=== PATIENT | male | born 1950 | race American Indian/Alaskan Native ===

== ENCOUNTER 2018-02-13 11:37 | Emergency (ER) | payer MEDICARE ==
[2018-02-13 11:51] VITALS: BMI 25.4
--- NOTE | 2018-02-13 12:00 | ED PDOC ---
Arrival/HPI - General Time Seen by Provider: 02/13/18 11:42 Historian: Patient - History of Present Illness Narrative History of Present Illness (Text): 02/13/18 11:56 A 67 year old male, with no significant past medical history, is brought into the emergency department by ambulance to the emergency department complaining of right knee and ankle pain s/p a fall 2 days ago. The patient states that he was walking down the stairs when he suddenly tripped over his 's shoes. He notes that he is unable to bear weight on his right lower extremity. The patient denies fevers, chills, loss of consciousness, headache, dizziness, chest pain, shortness of breath, dyspnea on exertion, cough, abdominal pain, nausea, vomiting, diarrhea, back pain, neck pain, urinary/bowel changes, or any other complaint. PMD: Dr. Murphy Time/Duration: Other (2 Days) Symptom Onset: Sudden Symptom Course: Unchanged Activities at Onset: Rest, Light Context: Home Associated Symptoms (Text): 02/13/18 12:16 Mechanical fall down 2 steps 2 days ago injuring his right knee and ankle. No hip trauma. No neck or back pain. No head trauma. No upper extremity trauma. He is unable to ambulate. Past Medical History - Provider Review Nursing Documentation Reviewed: Yes - Cardiac Hx Hypertension: Yes - Gastrointestinal Other/Comment: liver tumor / CA - Psychiatric Hx Substance Use: No Family/Social History - Physician Review Nursing Documentation Reviewed: Yes Family/Social History: No Known Family HX Smoking Status: Never Smoked Hx Alcohol Use: No Hx Substance Use: No Allergies/Home Meds Allergies/Adverse Reactions: Allergies peanut butter Adverse Reaction (Uncoded 02/13/18 12:04) FATIGUE Home Medications: Home Meds Medication Instructions Recorded Confirmed Donepezil [Aricept] 1 tab PO DAILY 12/08/16 12/08/16 Ergocalciferol [Drisdol] 50,000 iu PO 12/08/16 Nebivolol [Bystolic] 10 mg PO BID 12/08/16 12/08/16 Regorafenib [Stivarga] 40 mg PO DAILY 12/08/16 12/08/16 amLODIPine [Norvasc] 10 mg PO DAILY 12/08/16 12/08/16 Review of Systems - Physician Review All systems were reviewed & negative as marked: Yes - Review of Systems Constitutional: absent: Fevers, Night Sweats Respiratory: absent: SOB, Cough Cardiovascular: absent: Chest Pain, NEVES Gastrointestinal: absent: Abdominal Pain, Diarrhea, Nausea, Vomiting Genitourinary Male: absent: Urinary Output Changes Musculoskeletal: Other (Right knee and ankle pain). absent: Back Pain, Neck Pain Neurological: absent: Headache, Dizziness Physical Exam Vital Signs Reviewed: Yes Vital Signs Temp Pulse Resp BP Pulse Ox 02/13/18 13:55 80 17 149/87 99 02/13/18 11:54 98.4 F 76 17 161/93 H 99 Appearance: Positive for: Well-Appearing, Non-Toxic, Uncomfortable Pain Distress: Moderate Mental Status: Positive for: Alert and Oriented X 3 - Systems Exam Head: Present: Atraumatic, Normocephalic Pupils: Present: PERRL Extroacular Muscles: Present: EOMI Conjunctiva: Present: Normal Mouth: Present: Moist Mucous Membranes Neck: Present: Normal Range of Motion Respiratory/Chest: Present: Clear to Auscultation, Good Air Exchange. No: Respiratory Distress, Accessory Muscle Use Cardiovascular: Present: Regular Rate and Rhythm, Normal S1, S2. No: Murmurs Abdomen: No: Tenderness, Distention, Peritoneal Signs Back: Present: Normal Inspection Upper Extremity: Present: Normal Inspection. No: Cyanosis, Edema Lower Extremity: Present: NORMAL PULSES, Tenderness (Right knee tenderness with an effusion. Right ankle tenderness. ), Swelling (Right knee and ankle swollen. ), Neurovascularly Intact. No: CALF TENDERNESS, Cyanosis, Normal ROM (Limited, painful ROM of right knee. Full ROM of right ankle. ), Kait's Sign, Erythema Neurological: Present: GCS=15, CN II-XII Intact, Speech Normal, Motor Func Grossly Intact Skin: Present: Warm, Dry, Normal Color. No: Rashes Psychiatric: Present: Alert, Oriented x 3, Normal Insight, Normal Concentration Medical Decision Making ED Course and Treatment: 02/13/18 12:05 Impression: A 67 year old male presents to the emergency department complaining of right knee and ankle pain s/p mechanical fall 2 days ago. Plan: -- Toradol -- Right Ankle/ Knee/ Tibia Fibula X- Rays -- Reassess and disposition Progress Notes: PROCEDURE: Radiographs of the right tibia and fibula. Dictator : Aroldo Holder MD Report Date : 02/13/2018 13:36:46 IMPRESSION: Unremarkable radiographs of the right tibia and fibula. PROCEDURE: Right Knee Radiographs. Dictator : Aroldo Holder MD Report Date : 02/13/2018 13:38:15 IMPRESSION: Normal radiographs of the right knee. PROCEDURE: Right Ankle Radiographs. Dictator : Aroldo Holder MD Report Date : 02/13/2018 13:27:08 IMPRESSION: Normal right ankle radiographs. 02/13/18 13:09 Patient has crutches from home. Discharged home accompanied by his . Follow- up with PMD. Follow up in ER as needed. - RAD Interpretation Radiology Orders: 02/13/18 11:52 ANKLE RIGHT 3 VIEWS ROUTINE [RAD] Stat KNEE RIGHT 2 VIEWS (AP & LAT) [RAD] Stat 02/13/18 11:53 TIBIA FIBULA RIGHT [RAD] Stat Right tibia and fibula, knee, and ankle show no fracture or dislocation. Stock Hanger: ED Physician - Medication Orders Current Medication Orders: Discontinued Medications Ketorolac Tromethamine (Toradol) 30 mg IM ONCE ONE Stop: 02/13/18 11:54 Last Admin: 02/13/18 12:21 Dose: 30 mg MAR Pain Assessment Document 02/13/18 12:21 SF (Rec: 02/13/18 12:21 [id number] Pain Reassessment Is this a pain reassessment? Yes Sleep Is patient sleeping during reassessment? No Presence of Pain Presence of Pain Yes IM Administration Charges Document 02/13/18 12:21 SF (Rec: 02/13/18 12:21 SF [id number] Injection Site MAR Injection Site Left Deltoid Charges for Administration # of IM Administrations 1 - Scribe Statement The provider has reviewed the documentation as recorded by the Scribe Nu Ortiz Provider Scribe Attestation: All medical record entries made by the Scribe were at my direction and personally dictated by me. I have reviewed the chart and agree that the record accurately reflects my personal performance of the history, physical exam, medical decision making, and the department course for this patient. I have also personally directed, reviewed, and agree with the discharge instructions and disposition. Disposition/Present on Arrival - Present on Arrival Any Indicators Present on Arrival: No History of DVT/PE: No History of Uncontrolled Diabetes: No Urinary Catheter: No History of Decub. Ulcer: No - Disposition Have Diagnosis and Disposition been Completed?: Yes Diagnosis: Knee sprain, Ankle sprain Disposition: HOME/ ROUTINE Disposition Time: 13:09 Patient Plan: Discharge Condition: FAIR Discharge Instructions (ExitCare): Ankle Sprain (DC), Knee Sprain (DC) Additional Instructions: Rest ice and elevation. Tylenol or Advil as directed on bottle as needed. Follow -up with PMD. Follow-up with orthopedist. Crutches from home. Follow up in ER as needed. Prescriptions: Tramadol HCl [Ultram] 50 mg PO Q6 PRN #10 tab PRN Reason: Pain Forms: [employer] (Stateless)
[2018-02-13 13:06] VITALS: RESP 17; TEMP 98.4; O2SAT 99
--- NOTE | 2018-02-13 13:29 | RAD ---
PROCEDURE: Right Ankle Radiographs. HISTORY: trauma COMPARISON: None FINDINGS: BONES: Normal. No fracture. JOINTS: Normal. No osteoarthritis. Ankle mortise maintained. Talar dome intact SOFT TISSUES: Normal. OTHER FINDINGS: None. IMPRESSION: Normal right ankle radiographs.
--- NOTE | 2018-02-13 13:38 | RAD ---
PROCEDURE: Radiographs of the right tibia and fibula. HISTORY: trauma COMPARISON: None available. TECHNIQUE: Frontal and lateral views obtained. FINDINGS: BONES: No fracture or destructive lesion. JOINT SPACES: Unremarkable. OTHER FINDINGS: None. IMPRESSION: Unremarkable radiographs of the right tibia and fibula.
--- NOTE | 2018-02-13 13:40 | RAD ---
PROCEDURE: Right Knee Radiographs. HISTORY: trauma COMPARISON: None. FINDINGS: BONES: Normal. No fracture. JOINTS: Normal. No osteoarthritis. JOINT EFFUSION: Moderate jointeffusion OTHER FINDINGS: None. IMPRESSION: Normal radiographs of the right knee.
[2018-02-13 13:56] VITALS: BP 149/87; PULSE 80
== END 2018-02-13 13:55 | disposition home or self-care (01) ==
LOC: ED 11:37
DX: S93.401A Sprain of unspecified ligament of right ankle, initial encounter (principal); S83.91XA Sprain of unspecified site of right knee, initial encounter; W10.9XXA Fall (on) (from) unspecified stairs and steps, initial encounter
CPT/HCPCS: 73560; 73590; 73610; 96372; 99284; J1885

== ENCOUNTER 2018-03-24 10:09 | Emergency (ER) | payer MEDICARE ==
[2018-03-24 10:10] VITALS: BMI 25.4
[2018-03-24 10:31] VITALS: O2SAT 100
--- NOTE | 2018-03-24 11:14 | ED PDOC ---
Arrival/HPI - General Historian: Patient - History of Present Illness Time/Duration: 1 week Symptom Onset: Gradual Symptom Course: Worsening Quality: Aching, Pressure Severity Level: 4 Activities at Onset: Rest Context: Home <Kelley La - Last Filed: 03/24/18 23:09> <Valencia Gutierrez - Last Filed: 03/26/18 10:27> - General Chief Complaint: Finger,Hand,&Wrist Time Seen by Provider: 03/24/18 11:04 - History of Present Illness Narrative History of Present Illness (Text): 03/24/18 11:09 Pt is a 67 yr old male who presents to the ED c/o a swollen right hand for the past week. Pt reports pulling and twisting the right middle finger to try to ' pop' it as it felt stuck and hard to move due to arthritis. He says that each day, the finger and knuckle looked more red and swollen but continued to keep yanking on. urged home to go to the ED this morning due to significant redness and swelling. He has some mild motor deficits with the right hand but can still use it. Denies fever, blunt trauma, insect bite, chills, change in sensation or weakness or any other complaint. 03/24/18 14:55 PMD: Dr Sinan Ohara in [place] (Kelley La) Past Medical History - Provider Review Nursing Documentation Reviewed: Yes - Travel History Have you recently traveled outside [place] w/in the past 3 mons?: No - Cardiac Hx Cardiac Disorders: Yes Hx Hypertension: Yes - Pulmonary Hx Respiratory Disorders: No - Neurological Hx Neurological Disorder: No - HEENT Hx HEENT Disorder: No - Renal Hx Renal Disorder: No - Endocrine/Metabolic Hx Endocrine Disorders: No - Hematological/Oncological Hx Blood Disorders: Yes Hx Cancer: Yes Other/Comment: Liver Cancer - Integumentary Hx Dermatological Disorder: No - Musculoskeletal/Rheumatological Hx Musculoskeletal Disorders: No - Gastrointestinal Hx Gastrointestinal Disorders: Yes Other/Comment: liver tumor / CA - Genitourinary/Gynecological Hx Genitourinary Disorders: No - Psychiatric Hx Psychophysiologic Disorder: No Hx Substance Use: No - Surgical History Other/Comment: Liver <Kelley La - Last Filed: 03/24/18 23:09> Family/Social History - Physician Review Nursing Documentation Reviewed: Yes Family/Social History: Unknown Family HX Smoking Status: Never Smoked Hx Alcohol Use: No Hx Substance Use: No <Kelley La - Last Filed: 03/24/18 23:09> Allergies/Home Meds <Kelley La - Last Filed: 03/24/18 23:09> <Valencia Gutierrez - Last Filed: 03/26/18 10:27> Allergies/Adverse Reactions: Allergies peanut butter Adverse Reaction (Uncoded 03/24/18 10:23) FATIGUE Home Medications: Home Meds Medication Instructions Recorded Confirmed Ergocalciferol [Drisdol] 50,000 iu PO Q7D 12/08/16 03/24/18 Nebivolol [Bystolic] 10 mg PO BID 12/08/16 03/24/18 amLODIPine [Norvasc] 10 mg PO DAILY 12/08/16 03/24/18 Review of Systems - Review of Systems Constitutional: Normal. absent: Fevers Eyes: Normal ENT: Normal Respiratory: Normal Cardiovascular: Normal Gastrointestinal: Normal Genitourinary Male: Normal Musculoskeletal: Normal, Joint Swelling (right hand and middle digit) Skin: Normal Neurological: Normal Endocrine: Normal Hemo/Lymphatic: Normal Psychiatric: Normal <Kelley La - Last Filed: 03/24/18 23:09> Physical Exam Vital Signs Reviewed: Yes Temperature: Afebrile Blood Pressure: Normal Pulse: Bradycardic Respiratory Rate: Normal Appearance: Positive for: Well-Appearing, Non-Toxic, Comfortable Pain Distress: None Mental Status: Positive for: Alert and Oriented X 3 - Systems Exam Head: Present: Atraumatic, Normocephalic Pupils: Present: PERRL Extroacular Muscles: Present: EOMI Conjunctiva: Present: Normal Mouth: Present: Moist Mucous Membranes Neck: Present: Normal Range of Motion Respiratory/Chest: Present: Clear to Auscultation, Good Air Exchange. No: Respiratory Distress, Accessory Muscle Use Cardiovascular: Present: Regular Rate and Rhythm, Normal S1, S2. No: Murmurs Abdomen: No: Tenderness, Distention, Peritoneal Signs Back: Present: Normal Inspection Upper Extremity: Present: Normal Inspection, Normal ROM (limited due to swelling ), NORMAL PULSES, Tenderness (right middle digit and hand), Swelling (right hand ), Erythema (right hand middle digit), Neurovascularly Intact, Temperature Abnormalties, Capillary Refill < 2s. No: Cyanosis, Edema Lower Extremity: Present: Normal Inspection. No: Edema Neurological: Present: GCS=15, CN II-XII Intact, Speech Normal, Motor Func Grossly Intact, Normal Sensory Function, Gait Normal Skin: Present: Warm, Dry, Normal Color, Hot (warmth of the right hand). No: Rashes Psychiatric: Present: Alert, Oriented x 3, Normal Insight, Normal Concentration <Kelley La - Last Filed: 03/24/18 23:09> Vital Signs Temp Pulse Resp BP Pulse Ox 03/24/18 15:35 98.3 F 52 L 18 112/71 100 03/24/18 13:00 51 L 18 114/75 100 03/24/18 11:20 49 L 18 112/71 100 03/24/18 10:25 98.4 F 40 L 16 114/78 100 Medical Decision Making <Kelley La - Last Filed: 03/24/18 23:09> <Valencia Gutierrez - Last Filed: 03/26/18 10:27> ED Course and Treatment: 03/24/18 11:14 Impression Pt is a 67 yr old male who presents to the ED c/o a swollen right hand for the past week. On exam, warmth, erythema and edema over the right PIP and IP jt of the 3rd digit that extends into the ventral and dorsal hand; possible cellulitis/septic jt vs repetitive soft tissue trauma Plan XR of right hand 3 views Labs and blood Cx assess and dispo Progress note 03/24/18 13:02 Labs similar to previous visits 03/24/18 13:04 Pt added that he was evaluated in [place] one week ago and given oxycodone for jt pain No Fx or dislocation appreciated on XR; soft tissue swelling evident Pt remains comfortable and declined analgesics 03/24/18 14:22 Sending pt home with cephalexin 250mg q6 x 7 days f/u with PMD in a next 48 hrs *Dr Gutierrez requested to speak with PMD first before releasing pt and may consider admission (Kelley La) Patient on exam is noted to have erythema to MCP joint dorsal surface. No streaking or drainage is noted. He is able to range at MCP, PIP,and DIP joint with minimal discomfort. NO FLEXOR TENOSYNOVITIS BASED ON EXAM. After personal evaluation of patient with family present, patient exhibits no signs of sepsis, no fever, currently no limitations with ROM of fingers. As patient is reliable and understands need for recheck and close follow-up of erythema, he and family have been informed of need for follow-up and patient will be discharged with antibiotics. Patient is noted to have elevated Cr, he has prior history of this and this was reviewed with patient. (Valencia Gutierrez) - Lab Interpretations Microbiology Results: Microbiology Results 03/24/18 12:10 Blood-Venous Blood Culture - Preliminary NO GROWTH AFTER 24 HOURS 03/24/18 11:48 Blood-Venous Blood Culture - Preliminary NO GROWTH AFTER 24 HOURS Lab Results: 03/24/18 11:48 03/24/18 11:48 Lab Results 03/24/18 13:07: Urine Color Dark yellow, Urine Appearance Clear, Urine pH 6.0, Ur Specific [place] >= 1.030, Urine Protein 100 H, Urine Glucose (UA) Negative, Urine Ketones Negative, Urine Blood Trace-intact H, Urine Nitrate Negative, Urine Bilirubin Moderate H, Urine Urobilinogen 1.0 H, Ur Leukocyte Esterase Negative, Urine RBC 2 - 5, Urine WBC 2 - 5, Ur Epithelial Cells 0 - 2, Amorphous Sediment Small 03/24/18 11:48: Sodium 138, Potassium 3.6, Chloride 99, Carbon Dioxide 25, Anion Gap 17, BUN 31 H, Creatinine 1.7 H, Est GFR ( Amer) 49, Est GFR ( Non-Af Amer) 40, Random Glucose 94, Calcium 9.5, Total Bilirubin 0.9, AST 72 H, ALT 46, Alkaline Phosphatase 339 H, Total Protein 8.2, Albumin 4.2, Globulin 4.0 , Albumin/Globulin Ratio 1.0 L 03/24/18 11:48: WBC 7.1, RBC 3.95, Hgb 10.8 L, Hct 31.2 L, MCV 79.0 L, MCH 27.3 , MCHC 34.6, RDW 16.5 H, Plt Count 189, MPV 10.0, Gran % 75.2 H, Lymph % (Auto) 13.9 L, [place] % (Auto) 10.2 H, Eos % (Auto) 0.6 L, Baso % (Auto) 0.1, Gran # 5.36 , Lymph # (Auto) 1.0 L, [place] # (Auto) 0.7 H, Eos # (Auto) 0.0, Baso # (Auto) 0.01 - RAD Interpretation Radiology Orders: 03/24/18 11:06 HAND RIGHT 3 VIEWS [RAD] Stat - Medication Orders Current Medication Orders: Discontinued Medications Cephalexin Monohydrate (Keflex) 250 mg PO STAT STA PRN Reason: Protocol Stop: 03/24/18 14:08 Last Admin: 03/24/18 14:29 Dose: 250 mg Disposition/Present on Arrival - Present on Arrival Any Indicators Present on Arrival: Yes History of DVT/PE: No History of Uncontrolled Diabetes: No Urinary Catheter: No History of Decub. Ulcer: No History Surgical Site Infection Following: None - Disposition Have Diagnosis and Disposition been Completed?: Yes Disposition Time: 14:11 Patient Plan: Discharge <Kelley La - Last Filed: 03/24/18 23:09> - Present on Arrival Any Indicators Present on Arrival: No <Valencia Gutierrez - Last Filed: 03/26/18 10:27> - Disposition Diagnosis: Cellulitis of hand Disposition: HOME/ ROUTINE Condition: GOOD Discharge Instructions (ExitCare): Sprain (DC), Cellulitis (Skin Infection), Adult (DC), Cellulitis (ED) Additional Instructions: ARYAN FOSTER, thank you for letting us take care of you today. Your provider was Valencia Gutierrez MD, AMANDA La and you were treated for Cellulitis of (R )HAND. The emergency medical care you received today was directed at your acute symptoms. If you were prescribed any medication, please fill it and take as directed. It may take several days for your symptoms to resolve. Return to the Emergency Department if your symptoms worsen, do not improve, or if you have any other problems. Please see your Primary care Doctor in the next few days for follow up care. Please contact your doctor or call one of the physicians/clinics you have been referred to that are listed on the Patient Visit Information form that is included in your discharge packet. Bring any paperwork you were given at discharge with you along with any medications you are taking to your follow up visit. Our treatment cannot replace ongoing medical care by a primary care provider outside of the emergency department. Thank you for allowing the [facility] team to be part of your care today. If you had an X-Ray or CT scan: A Radiologist will review the ED reading if any change in treatment is needed we will contact you. If you had a blood, urine, or wound culture: It will take several days for the results, if any change in treatment is needed we will contact you. Prescriptions: Cephalexin [Keflex] 250 mg PO Q6 7 Days #28 cap Naproxen [Naprosyn] 500 mg PO Q12 5 Days #10 tablet Forms: [employer] (Urdu), WORK NOTE
[2018-03-24 11:21] VITALS: RESP 18
[2018-03-24 12:03] LABS: BASO # 0.01 K/mm3 (0.0-2.0); BASO % 0.1 % (0.0-3.0); EOS % 0.6 % (1.5-5.0); GRAN # 5.36 (1.4-6.5); GRAN % 75.2 % (50.0-68.0); HEMOGLOBIN 10.8 g/dL (14.0-18.0); LYMPH % 13.9 % (22.0-35.0); MEAN CORPUSCULAR HEMOGLOBIN 27.3 pg (25.0-35.0); MEAN CORPUSCULAR HGB CONC 34.6 g/dl (31.0-37.0); MONO # 0.7 (0.1-0.6); MONO % 10.2 % (1.0-6.0); RBC 3.95 10^6/uL (3.5-6.1); RED CELL DISTRIBUTION WIDTH 16.5 % (11.5-14.5); WHITE BLOOD COUNT 7.1 10^3/ul (4.5-11.0)
[2018-03-24 12:12] LABS: ALBUMIN 4.2 g/dL (3.0-4.8); CALCIUM 9.5 mg/dL (8.4-10.5)
[2018-03-24 13:15] LABS: URINE BILIRUBIN MODERATE (NEGATIVE); URINE BLOOD TRACE-INTACT (NEGATIVE); URINE GLUCOSE (UA) NEGATIVE (NEGATIVE); URINE LEUKOCYTE ESTERASE NEGATIVE Leu/uL (NEGATIVE); URINE PROTEIN 100 mg/dL (<30 mg/dL)
[2018-03-24 13:16] LABS: URINE APPEARANCE CLEAR (CLEAR); URINE COLOR DARK YELLOW (YELLOW)
[2018-03-24 13:45] LABS: URINE AMORPHOUS SEDIMENT SMALL; URINE EPITHELIAL CELLS 0 - 2 /hpf (0-5)
[2018-03-24 15:43] VITALS: BP 112/71; PULSE 52; TEMP 98.3
--- NOTE | 2018-03-24 17:21 | RAD ---
PROCEDURE: Right Hand Radiographs. HISTORY: Injury COMPARISON: None. FINDINGS: BONES: No evidence acute displaced fracture nor dislocation. . JOINTS: Normal. No osteoarthritic changes. SOFT TISSUES: Normal. OTHER FINDINGS: None. IMPRESSION: Normal right hand radiographs.
== END 2018-03-24 15:45 | disposition home or self-care (01) ==
LOC: ED 10:09
DX: L03.115 Cellulitis of right lower limb (principal); I10 Essential (primary) hypertension